=== PATIENT | female | born 1995 | race Caucasian/White ===

== ENCOUNTER 2020-04-24 04:50 | Inpatient (IN) | payer OTHER, SELFPAY ==
[2020-04-24] VITALS (158 sets, daily range): BP systolic 47–173; BP diastolic 14–127; PULSE 42–292; RESP 16; TEMP 36.6–36.9; O2SAT 96–100; BMI 39.5
--- NOTE | 2020-04-24 05:07 | LDADM ---
This patient, Mary Buchanan, was admitted to Labor/Delivery/Recovery 102 on 04/24/20 at 04:50. Plans for labor, pain management and were discussed with patient. Patient/family oriented to hospital policies and general routines including ID bracelet, bed and alarms, visiting hours, pain management, procedures, bathroom and other care routines, personal items, smoking policy, room service/diet and guest tray routines, security routines, and visiting hours. Patient/Family are encouraged to report perceived risks to care and to ask questions if they do not understand what they are told or what they should do. See OBIX for further documentation.
[2020-04-24] MEDS: LACTATED RINGERS 1,000 ML 125 ML IV CONT ×2 (05:40→14:15)
[2020-04-24] MEDS: OXYTOCIN 30 UNITS/NS 500 ML 30 UNITS/500 ML BAG IV CONT (05:40)
[2020-04-24 05:43] LABS: Basophils Percent Auto 0.3 % (0.2-1.2); Eosinophils Absolute Auto 0.1 K/mm3 (0-0.3); Eosinophils Percent Auto 0.6 % (0-4.4); Hematocrit 35.7 % (37.0-47.0); Hemoglobin 12.2 g/dL (12.0-15.0); Immature Granulocyte Absolute 0.04 K/mm3 (0.00-0.031); Immature Granulocyte Percent A 0.5 % (0-0.5); Lymphocytes Absolute Auto 2.09 K/mm3 (0.9-3.2); Lymphocytes Percent Auto 24.2 % (18.3-44.2); Mean Corpuscular HGB Conc 34.2 g/dl (32-36); Mean Corpuscular Hemoglobin 32.6 pg (26-34); Mean Corpuscular Volume 95.5 fl (80-100); Mean Platelet Volume 9.8 fl (7.4-10.4); Monocytes Absolute Auto 0.7 K/mm3 (0.1-0.6); Monocytes Percent Auto 7.8 % (2.6-8.5); Neutrophils Absolute Auto 5.7 K/mm3 (1.3-6.7); Neutrophils Percent Auto 66.6 % (45.5-73.1); Platelet Count Result 259 k/mm3 (150-375); Red Blood Count 3.74 M/mm3 (4.2-5.4); Red Cell Distribution Width 13.2 % (11.5-14.5); White Blood Count 8.6 K/mm3 (4.5-10.0)
--- NOTE | 2020-04-24 06:28 | PM.IMHP ---
H&P: HPI History of Present Illness Date/Time: 04/24/20 06:28 Chief Complaint: iol Narrative: Mary Buchanan is a 24 year old female G3P 0 whose last menstrual period was 07/25/2019, EDC is 04/30/2019 presents at 39+ weeks gestation for induction. has been uncomplicated. She is negative for group B strep. Her cervix is favorable Review of Systems Review of Systems: All systems reviewed & are unremarkable except as noted in HPI and below PMFSH Family History Family History Father FHx: kidney cancer Hypertension Hypothyroidism Mother Chronic obstructive pulmonary disease CAD (coronary artery disease) Hypertension Social History Social History Smoking status: Never smoker Second hand tobacco smoke exposure: No Substance use: never Spiritual care concerns: No Meds Home Medications and Allergies Home Medications Medication Instructions Recorded Confirmed Type prenat.vits,ron,jge-[id number] 1 tablet PO DAILY 04/10/20 04/10/20 History [ #2] Allergies Allergy/AdvReac Type Severity Reaction Status Date / Time No Known Allergies Allergy Verified 04/10/20 08:59 Vital Signs Vital Signs - 24 hr 04/24/20 05:34 04/24/20 05:46 04/24/20 06:01 Temperature 98.5 F Pulse Rate 84 217 H 80 Blood Pressure 121/62 113/68 105/77 04/24/20 06:16 Temperature Pulse Rate 62 Blood Pressure 127/90 Exam Const: General: no acute distress Eyes: General: appearance normal, both eyes and all related structures Neck: Neck: supple and no JVD Thyroid: thyroid normal Resp: Effort & Inspection: normal respiratory effort Auscultation: clear to auscultation bilaterally Cardio: Rate: regular rate Rhythm: regular rhythm GI: Inspection: non-distended GI Palp: Yes Soft to palpation, No Tenderness to palpation present (GI) and No Guarding due to palpation present (GI) Auscultation: normal bowel sounds : General: Yes other (Cervix 3/50/-1. AROM clear. FHTs reassuring) Skin: General skin exam: no rashes or lesions noted Extrem: General: normal to inspection and no edema Psych: Mental Status: mental status grossly normal Affect: normal affect H&P: Results Labs Labs: Short CBC 04/24/20 Range/Units 05:30 WBC 8.6 (4.5-10.0) K/mm3 Hgb 12.2 (12.0-15.0) g/dL Hct 35.7 L (37.0-47.0) % Plt Count 259 (150-375) k/mm3 Assessment and Plan Additional Plan Impression: Term with favorable cervix Plan: Medical induction of labor. Spontaneous vaginal delivery expected. She has an epidural candidate
[2020-04-24 07:05] LABS: Rapid Plasma Reagin Non-Reactive (NonReactive)
--- NOTE | 2020-04-24 08:02 | P.PNAN_ITS ---
Anes - Eval Pre Procedure Procedure: Labor Epidural Date/Time: 04/24/20 08:02 Surgeon: Eden Preop Diagnosis: Labor Pain Pre Op Diagnosis: Induction of Labor Patient Data Age: 24 Gender: F Height: 5 ft 4 in Weight: 104.5 kg Last Vital Signs Temp 36.6 C 04/24/20 07:30 Pulse 109 H 04/24/20 08:01 BP 173/92 H 04/24/20 08:01 Allergies Allergy/AdvReac Type Severity Reaction Status Date / Time No Known Allergies Allergy Verified 04/10/20 08:59 Home Medications Medication Instructions Recorded Confirmed Type prenat.vits,ron,[id number]-[id number]-[id number] 1 tablet PO DAILY 04/10/20 04/10/20 History [ #2] Laboratory Tests 04/24/20 04/24/20 04/24/20 05:30 05:30 05:30 WBC 8.6 K/mm3 K/mm3 (4.5-10.0) RBC 3.74 M/mm3 L M/mm3 (4.2-5.4) Hgb 12.2 g/dL g/dL (12.0-15.0) Hct 35.7 % L % (37.0-47.0) MCV 95.5 fl fl (80-100) MCH 32.6 pg pg (26-34) MCHC 34.2 g/dl g/dl (32-36) RDW 13.2 % % (11.5-14.5) Plt Count 259 k/mm3 k/mm3 (150-375) MPV 9.8 fl fl (7.4-10.4) Immature Gran % (Auto) 0.5 % % (0-0.5) Neut % (Auto) 66.6 % % (45.5-73.1) Lymph % (Auto) 24.2 % % (18.3-44.2) [place] % (Auto) 7.8 % % (2.6-8.5) Eos % (Auto) 0.6 % % (0-4.4) Baso % (Auto) 0.3 % % (0.2-1.2) Lymph # (Auto) 2.09 K/mm3 K/mm3 (0.9-3.2) [place] # (Auto) 0.7 K/mm3 H K/mm3 (0.1-0.6) Eos # (Auto) 0.1 K/mm3 K/mm3 (0-0.3) Baso # (Auto) 0.0 K/mm3 K/mm3 (0.0-0.1) Abs Immat Gran (auto) 0.04 K/mm3 H K/mm3 (0.00-0.031) Absolute Neuts (auto) 5.7 K/mm3 K/mm3 (1.3-6.7) Absolute Nucleated RBC 0.0 K/mm3 K/mm3 (0.0-0.012) Nucleated RBC % 0.0 % % (0.0-0.2) RPR Non-reactive (NonReactive) Blood Type A Positive Antibody Screen Negative : gestational age (INES 04/30/20) Patient hx anesthesia problems: none Family hx anesthesia problems: none PMFSH Family History Family History Father FHx: kidney cancer Hypertension Hypothyroidism Mother Chronic obstructive pulmonary disease CAD (coronary artery disease) Hypertension Social History Social History Smoking status: Never smoker Second hand tobacco smoke exposure: No Substance use: never Spiritual care concerns: No Exam Day of Procedure 04/24/20 08:02 Patient weight: overweight Heart: regular rate and rhythm Lungs: normal air movement Airway: Mallampati scale class II Neurological: alert and oriented
[2020-04-24] MEDS: ONDANSETRON INJ 4 MG/2 ML VIAL IV PUSH (11:42)
[2020-04-24] MEDS: FAMOTIDINE 20 MG/2 ML VIAL IV PUSH (11:42)
--- NOTE | 2020-04-24 12:04 | P.PNOB_ITS ---
OB - PN: Subj Subjective Date/time seen: 04/24/20 12:04 cx 3.5 by rn exam iupc with good ucs fhts ok OB - PN: Obj Data Labs CBC & Chem 7: 04/24/20 05:30 Labs: Laboratory Results - last 24 hr 04/24/20 04/24/20 04/24/20 05:30 05:30 05:30 WBC 8.6 RBC 3.74 L Hgb 12.2 Hct 35.7 L MCV 95.5 MCH 32.6 MCHC 34.2 RDW 13.2 Plt Count 259 MPV 9.8 Immature Gran % (Auto) 0.5 Neut % (Auto) 66.6 Lymph % (Auto) 24.2 [place] % (Auto) 7.8 Eos % (Auto) 0.6 Baso % (Auto) 0.3 Lymph # (Auto) 2.09 [place] # (Auto) 0.7 H Eos # (Auto) 0.1 Baso # (Auto) 0.0 Abs Immat Gran (auto) 0.04 H Absolute Neuts (auto) 5.7 Absolute Nucleated RBC 0.0 Nucleated RBC % 0.0 RPR Non-reactive Blood Type A Positive Antibody Screen Negative OB - PN A/P Time Spent With Patient Time: Total time spent is greater than 50% in coordination of care (as docum ented) at patient's floor/unit and/or counseling patient:
--- NOTE | 2020-04-24 16:15 | P.PNOB_ITS ---
OB - PN: Subj Subjective Date/time seen: 04/24/20 16:15 cx rim fhts ok OB - PN: Obj Data Labs CBC & Chem 7: 04/24/20 05:30 Labs: Laboratory Results - last 24 hr 04/24/20 04/24/20 04/24/20 05:30 05:30 05:30 WBC 8.6 RBC 3.74 L Hgb 12.2 Hct 35.7 L MCV 95.5 MCH 32.6 MCHC 34.2 RDW 13.2 Plt Count 259 MPV 9.8 Immature Gran % (Auto) 0.5 Neut % (Auto) 66.6 Lymph % (Auto) 24.2 [place] % (Auto) 7.8 Eos % (Auto) 0.6 Baso % (Auto) 0.3 Lymph # (Auto) 2.09 [place] # (Auto) 0.7 H Eos # (Auto) 0.1 Baso # (Auto) 0.0 Abs Immat Gran (auto) 0.04 H Absolute Neuts (auto) 5.7 Absolute Nucleated RBC 0.0 Nucleated RBC % 0.0 RPR Non-reactive Blood Type A Positive Antibody Screen Negative OB - PN A/P Time Spent With Patient Time: Total time spent is greater than 50% in coordination of care (as documented) at patient's floor/unit and/or counseling patient:
--- NOTE | 2020-04-24 16:56 | PM.OBPRVD ---
OB - Delivery Note Procedure Delivery date: 04/24/20 Intrapartal events: None Induction method: AROM Delivery augmentation: pitocin Delivery monitor: external FHT Route of delivery: Episiotomy description: None Laceration Description: None Specimen: No Quantitative Blood Loss (ml): 58 Anesthesia type: Epidural Disposition: floor Baby Date of : 04/24/20 Time of : 16:48 Weeks of gestation at delivery: 39 gender: Female presentation: vertex position: Right Occiput Anterior Placenta delivery description: Spontaneous cord vessel description: 3 Vessels and Clamped/Cut score one minute: 9 score five minutes: 9
[2020-04-24] MEDS: OXYTOCIN 30 UNITS/NS 500 ML 30 UNITS/500 ML BAG 125 UNITS IV CONT (17:09)
[2020-04-24] MEDS: IBUPROFEN 600 MG TABLET PO (19:09)
[2020-04-24] MEDS: WITCH HAZEL 40 PADS 1 PAD TOPICAL (19:10)
[2020-04-24] MEDS: BENZOCAINE 20% AER SPR (*SP) 56 GM CAN 1 SPRAY TOPICAL (19:10)
[2020-04-25 05:35] LABS: Hemoglobin 11.1 g/dL (12.0-15.0)
--- NOTE | 2020-04-25 06:42 | P.PNOB_ITS ---
OB - PN: Subj Subjective Date/time seen: 04/25/20 06:42 Patient comments: no complaints and pain well controlled baby status: doing well and nursing well OB - PN: Obj Data Labs CBC & Chem 7: 04/25/20 05:10 Labs: Laboratory Results - last 24 hr 04/24/20 04/24/20 04/25/20 05:30 05:30 05:10 Hgb 11.1 L Hct 33.0 L RPR Non-reactive Blood Type A Positive Antibody Screen Negative OB - PN A/P Plan day: 1 Plan: routine care, discharge home and follow up 6 weeks Time Spent With Patient Time: Total time spent is greater than 50% in coordination of care (as do cumented) at patient's floor/unit and/or counseling patient: Time with patient: less than 15 minutes Review of Systems Review of Systems: All systems reviewed & are unremarkable except as noted in HPI and below Exam Const: General: no acute distress Eyes: General: appearance normal, both eyes and all related structures Neck: Neck: supple and no JVD Thyroid: thyroid normal Resp: Effort & Inspection: normal respiratory effort Auscultation: clear to auscultation bilaterally Cardio: Rate: regular rate Rhythm: regular rhythm GI: Inspection: non-distended GI Palp: Yes Soft to palpation, No Tenderness to palpation present (GI) and No Guarding due to palpation present (GI) Auscultation: normal bowel sounds : General: Yes bladder normal to palpation External Female Exam: normal external appearance Speculum Exam - Vagina: normal vaginal discharge and No vaginal bleeding Speculum Exam - Cervix: nontender Bimanual exam- vagina & uterus: bladder normal to palpation and No Cervical tenderness present OB/external & speculum: No vaginal bleeding Skin: General skin exam: no rashes or lesions noted Extrem: General: normal to inspection and no edema Psych: Mental Status: mental status grossly normal Affect: normal affect
--- NOTE | 2020-04-25 06:43 | PM.DS ---
DS: Admitting Diagnosis Admitting Diagnosis Admitting Diagnosis: term iupu DS: Summary Hospital Course Hospital Course: The patient was admitted for induction of labor at term. She underwent spontaneous vaginal delivery which was unremarkable. Her hospital course was unremarkable. She remained afebrile. She was up, voiding without difficulty, ambulating, and breast-feeding without difficulty. Time Spent with Patient Time attestation: Total time spent providing and/or coordinating discharge services: Exam Const: General: no acute distress Eyes: General: appearance normal, both eyes and all related structures Neck: Neck: supple and no JVD Thyroid: thyroid normal Resp: Effort & Inspection: normal respiratory effort Auscultation: clear to auscultation bilaterally Cardio: Rate: regular rate Rhythm: regular rhythm GI: Inspection: non-distended GI Palp: Yes Soft to palpation, No Tenderness to palpation present (GI) and No Guarding due to palpation present (GI) Auscultation: normal bowel sounds : General: Yes bladder normal to palpation External Female Exam: normal external appearance Speculum Exam - Vagina: normal vaginal discharge and No vaginal bleeding Speculum Exam - Cervix: nontender Bimanual exam- vagina & uterus: bladder normal to palpation and No Cervical tenderness present OB/external & speculum: No vaginal bleeding Skin: General skin exam: no rashes or lesions noted Extrem: General: normal to inspection and no edema Psych: Mental Status: mental status grossly normal Affect: normal affect DS: Data Data Completed and Pending Labs on day of discharge: Labs from last 24 hours 04/25/20 04/24/20 04/24/20 05:10 05:30 05:30 Hgb 11.1 L Hct 33.0 L RPR Non-reactive Blood Type A Positive Antibody Screen Negative Discharge Plan Discharge Attending physician on discharge: Jose Hoffman Discharging Clinician: Jose Hoffman Patient Disposition: Home, Self-Care Activity: may shower, no straining and pelvic rest Diet: heart healthy Wound Care Instructions: follow printed instructions Patient Instructions: Antibiotic Form Stand Alone Forms: General Discharge Information Follow-up/Referrals: Jose Hoffman MD [Physician] - Discharge Medications: Continued #2 Tablet 1 tablet PO DAILY RF: 0 Date of admission: 04/24/20 04:50 Primary Care Provider: Gualberto Navarrete Admitting Provider: Jose Hoffman Attending physician on admission: Jose Hoffman Condition: Stable
[2020-04-25] MEDS: MULTIVIT/MIN/PREN/FOL AC/IRON TABLET 1 TAB PO (07:30)
[2020-04-25] MEDS: IBUPROFEN 600 MG TABLET PO (07:31)
[2020-04-25 07:40] VITALS: PULSE 66; RESP 18; O2SAT 98
[2020-04-25 09:05] VITALS: BP 95/57; PULSE 66; RESP 18; TEMP 37.1; O2SAT 98
--- NOTE | 2020-04-25 10:30 | WPDANLDPN2 ---
Anes-Prog Note L&D Date/Time: 04/25/20 10:30 Comfortable throughout: labor and delivery Neuraxial method: epidural Epidural/Spinal procedure site: clean & non-tender Neuro status: Neuro function grossly intact. Cardiovascular status: normal Respiratory status: normal Airway patency: baseline Mental status: baseline Post-Op hydration status: normal Vital Signs: Last Vital Signs Temp 37.1 C 04/25/20 09:05 Pulse 66 04/25/20 09:05 Resp 18 04/25/20 09:05 BP 95/57 L 04/25/20 09:05 Pulse Ox 98 04/25/20 09:05 Pain score (VAS): 0 I/O: Intake & Output 04/24/20 04/25/20 04/25/20 23:59 07:59 15:59 Intake Total 1500 Balance 1500 Post-procedural complaints: none Patient feedback: Patient satisfied with anesthetic care.
--- NOTE | 2020-04-25 11:06 | PC.NURSE ---
Consulted with patient, reviewed infant feeding cues, frequencies, duration of feedings, feeding elimination flow sheet, and signs of adequate intake. Reviewed stimulation techniques to wake for feeding. Mom independently latched infant to breast. Reviewed positioning/alignment, holding breast and asymmetrical latch on. was able to latch correctly. Infant nursed eagerly, with steady draws and frequent swallowing noted. Reviewed signs of a correct latch, effective nursing and suck swallow ratio. was able to maintain latch without discomfort to mother. Nipple care reviewed. Instructed mother to call out for RN assistance if she is unable to latch infant for feeding or she has discomfort with nursing. Instructed feeding should be initiated three hours from start of last feeding or if feeding cues are noted before. Mother voiced understanding of information shared. Mother verbalizes she is able to independently latch with appropriate positioning/alignment. She denies any nipple discomfort, is feeding as required and waking infant to feed if needed. Infant has had 8 effective feedings so far, and is currently meeting outcomes for weight, output, jaundice and feeding frequencies at this time. Mother states she feels confident to continue effective at home. Reviewed transition to breast milk, signs of adequate intake, and engorgement/relief. Instructed to call ICP if intake/output less than required. Reviewed community resources on the [facility] website and in the Mom/Baby guide. Information on outpatient services provided. Mother has no further questions at this time.
--- NOTE | 2020-04-25 17:06 | PC.NURSE ---
Patient viewed the discharge video Mother & Baby Care, The First Two Weeks . Patient was given the opportunity and encouraged to ask questions. Patient verbalized understanding of information shared and has been given the mother/baby guide for home reference.
[2020-04-26 09:39] VITALS: BP 128/79; PULSE 86; RESP 20; TEMP 37; O2SAT 100
== END 2020-04-25 18:33 | disposition home or self-care (01) | DRG 807 ==
LOC: ANHLDR 04:57 → ANHOB2 21:08
PROVIDERS: Admitting Provider Obstetrics & Gynecology; PCP Family Medicine; Visit Provider Obstetrics & Gynecology
DX: O80 Encounter for full-term uncomplicated delivery (principal); Z37.0 Single live birth; Z3A.39 39 weeks gestation of pregnancy
CPT/HCPCS: 36415; 85014; 85018; 85025; 86592; 86850; 86900; 86901; A9270; J2405; J2590; J2795; J7120